=== PATIENT | male | born 1990 | race Caucasian/White ===

== ENCOUNTER 2016-08-15 22:09 | Emergency (ER) | payer MEDICAID ==
[2016-08-15 22:09] VITALS: BMI 22.0
[2016-08-15 22:32] VITALS: PULSE 71; TEMP 98.6
[2016-08-15] MEDS ORDERED: Naproxen 550 mg Tab PO STA (22:47)
--- NOTE | 2016-08-15 23:03 | C.PDOC ---
History Of Present Illness 26 year old male presents to the ED with complaints of left upper chest pain for three days that worsens with movement of the shoulder. 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 He denies any trauma to the area , cough, fever, or SOB. Time Seen by Provider: 08/15/16 22:33 Chief Complaint (Nursing): Chest Pain History Per: Patient History/Exam Limitations: no limitations Current Symptoms Are (Timing): Still Present Severity: Mild Quality: "Pain" Exacerbating Factors: Movement (movement of shoulder) Past Medical History Reviewed: Historical Data, Nursing Documentation, Vital Signs Vital Signs: Last Vital Signs Temp 98.6 F 08/15/16 22:20 Pulse 71 08/15/16 22:20 Resp 15 08/15/16 23:23 BP 117/63 08/15/16 23:23 Pulse Ox 100 08/15/16 23:48 - Medical History PMH: No Chronic Diseases Family History: States: No Known Family Hx - Social History Hx Alcohol Use: No Hx Substance Use: No Review Of Systems Except As Marked, All Systems Reviewed And Found Negative. Constitutional: Negative for: Fever, Chills Cardiovascular: Positive for: Chest Pain. Negative for: Palpitations Respiratory: Negative for: Cough, Shortness of Breath Gastrointestinal: Negative for: Nausea, Vomiting, Abdominal Pain, Diarrhea Physical Exam - Physical Exam Appears: Well, Non-toxic, No Acute Distress Skin: Warm, Dry, No Rash, No Ecchymosis Head: Normacephalic Oral Mucosa: Moist Neck: Supple Chest: Symmetrical, No Deformity, Tenderness (mild tenderness upon palpation to left upper chest ) Cardiovascular: Rhythm Regular Respiratory: Normal Breath Sounds, No Rales, No Rhonchi, No Wheezing Gastrointestinal/Abdominal: Normal Exam, Bowel Sounds, Soft, No Tenderness, No Guarding, No Rebound Extremity: Normal ROM, No Tenderness, No Deformity Neurological/Psych: Oriented x3 ED Course And Treatment ECG: Interpreted By Me, Viewed By Me (NSR 75 bpm, normal axis, no acute ST/T wave changes) ECG Interpretation: Normal O2 Sat by Pulse Oximetry: 100 (room air ) Pulse Ox Interpretation: Normal - Radiology CXR: Interpreted by Me, Viewed By Me CXR Interpretation: No: Infiltrates Progress Note: Patient given PO Naprosyn and Flexeril. CXR ordered and reviewed. Reevaluation Time: 23:00 Reassessment Condition: Improved (Patient reassessed, is resting comfortably, pain has improved and he states he feels better. CXR and EKG WNL. Pain is likely musculoskeletal, he was given Rxs for Naprosyn and Flexeril, and instructed to follow up with PMD/clinic in 1-2 days. He understands he should return to ED if symptoms worsen.) Disposition Counseled Patient/Family Regarding: Diagnosis, Need For Followup, Rx Given - Disposition Referrals: [facility] at [facility] [Outside] Disposition: HOME/ ROUTINE Disposition Time: 23:00 Condition: STABLE Additional Instructions: FOLLOW UP WITH YOUR DOCTOR IN 1-2 DAYS USE MEDICATIONS NEEDED RETURN TO ER IF SYMPTOMS WORSEN Prescriptions: Cyclobenzaprine [Cyclobenzaprine HCl] 10 mg PO BID PRN #12 tab PRN Reason: pain/muscle Naproxen [Naprosyn Tab] 375 mg PO BID PRN #20 tab PRN Reason: pain Instructions: Musculoskeletal Pain (ED), Chest Wall Pain (ED) Forms: Work Excuse Print Language: ICELANDIC - POA Present On Arrival: None - Clinical Impression Clinical Impression: Chest wall pain - Scribe Statement The provider has reviewed the documentation as recorded by the Scribe Sharri Laurent All medical record entries made by the Jovonibe were at my direction and personally dictated by me. I have reviewed the chart and agree that the record accurately reflects my personal performance of the history, physical exam, medical decision making, and the department course for this patient. I have also personally directed, reviewed, and agree with the discharge instructions and disposition.
[2016-08-15] MEDS ORDERED: Naproxen 550 mg Tab PO ONE (23:08)
[2016-08-15 23:24] VITALS: BP 117/63; RESP 15
[2016-08-15 23:42] VITALS: O2SAT 100
--- NOTE | 2016-08-16 12:24 | RAD ---
HISTORY: left upper chest wallace COMPARISON: No prior. TECHNIQUE: Chest PA and lateral FINDINGS: LUNGS: No active pulmonary disease. PLEURA: No significant pleural effusion identified. No pneumothorax apparent. CARDIOVASCULAR: Normal. OSSEOUS STRUCTURES: No significant abnormalities. VISUALIZED UPPER ABDOMEN: Normal. OTHER FINDINGS: None. IMPRESSION: No active disease. Concordant results with the preliminary interpretation rendered by the emergency department physician procedure.
== END 2016-08-15 23:23 | disposition home or self-care (01) ==
LOC: C.ER 22:09
DX: R07.89 Other chest pain (principal)

== ENCOUNTER 2017-10-17 18:22 | Emergency (ER) | payer SELFPAY ==
[2017-10-17 18:41] VITALS: BP 112/66; PULSE 68; RESP 18; TEMP 98.9; O2SAT 99; BMI 27.4
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
== END 2017-10-17 19:41 | disposition home or self-care (01) ==
LOC: C.ER 18:22
DX: B35.6 Tinea cruris (principal)

== ENCOUNTER 2018-08-26 22:08 | Emergency (ER) | payer SELFPAY ==
[2018-08-26 22:08] VITALS: BMI 22.0
[2018-08-26 22:27] VITALS: RESP 20; TEMP 99
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
[2018-08-26 23:43] VITALS: BP 120/78; PULSE 82; O2SAT 97
--- NOTE | 2018-08-27 08:28 | RAD ---
HISTORY: cp COMPARISON: Chest x-ray performed 08/15/16 TECHNIQUE: Chest PA and lateral, 2 views FINDINGS: LUNGS: No focal consolidation. Please note that chest x-ray has limited sensitivity for the detection of pulmonary masses. PLEURA: No significant pleural effusion identified. No definite pneumothorax . CARDIOVASCULAR: The cardiomediastinal silhouette appears within normal limits of size. No atherosclerotic calcification present. OSSEOUS STRUCTURES: No acute osseous abnormality identified. VISUALIZED UPPER ABDOMEN: Unremarkable. OTHER FINDINGS: None. IMPRESSION: No acute findings.
--- NOTE | 2018-08-30 21:12 | CARD ---
APPROVED REPORT Date of service: 08/26/2018 EKG Measurement Heart [id number] <Conclusion> Normal sinus rhythm with sinus arrhythmia Minimal voltage criteria for LVH, may be normal variant Borderline ECG
== END 2018-08-26 23:39 | disposition home or self-care (01) ==
LOC: C.ER 22:08
DX: J70.5 Respiratory conditions due to smoke inhalation (principal)